=== PATIENT | female | born 1990 | race African-American/Black ===

== ENCOUNTER 2016-06-15 08:25 | Outpatient (CLI) | payer OTHER ==
[2016-06-15 09:47] LABS: PLATELET COUNT 278 K/uL (152-353)
[2016-06-15 09:55] LABS: POTASSIUM 3.4 mmol/L (3.6-5.2); SODIUM 137 mmol/L (136-145)
== END 2016-06-15 19:44 | disposition home or self-care (01) ==
LOC: LABW 08:25
PROVIDERS: Internal Medicine
DX: D64.89 Other specified anemias (principal); R79.0 Abnormal level of blood mineral; R53.83 Other fatigue
CPT/HCPCS: 36415; 80053; 81000; 81025; 82607; 82728; 82747; 83540; 83550; 84439; 84443; 85027

== ENCOUNTER 2016-10-02 15:47 | Outpatient (CLI) | payer OTHER | END 2016-10-02 16:50 | disposition home or self-care (01) | LOC: RAD 15:47 | DX: M79.671 Pain in right foot (principal) ==

== ENCOUNTER 2017-02-15 10:14 | Outpatient (CLI) | payer OTHER | END 2017-02-15 11:30 | disposition home or self-care (01) | LOC: CT 10:14 | DX: R51 Headache (principal) ==

== ENCOUNTER 2017-08-08 09:20 | Outpatient (CLI) | payer OTHER ==
[2017-08-08 10:31] LABS: POTASSIUM 3.4 mmol/L (3.6-5.2); SODIUM 135 mmol/L (136-145)
== END 2017-08-08 19:57 | disposition home or self-care (01) ==
LOC: LABW 09:20
PROVIDERS: Family Medicine
DX: D64.89 Other specified anemias (principal); R53.83 Other fatigue; Z83.3 Family history of diabetes mellitus; R07.89 Other chest pain; R79.89 Other specified abnormal findings of blood chemistry
CPT/HCPCS: 36415; 80053; 80061; 82306; 82550; 83036; 83655; 83735; 84439; 84443; 84484; 93005

== ENCOUNTER 2017-12-25 11:27 | Outpatient (CLI) | payer OTHER | END 2017-12-25 22:42 | disposition home or self-care (01) | LOC: RAD 11:27 | DX: S90.122A Contusion of left lesser toe(s) without damage to nail, initial encounter (principal) ==

== ENCOUNTER 2018-11-19 12:13 | Emergency (ER) | payer OTHER ==
[~2018-11-19] VITALS: Ht 157.5 cm; Wt 60.3 kg
[2018-11-19 12:17] VITALS: TEMP 98.4
[2018-11-19 14:30] VITALS: BP 104/68
== END 2018-11-19 14:45 | disposition home or self-care (01) ==
LOC: ED 12:13
DX: G43.909 Migraine, unspecified, not intractable, without status migrainosus (principal)
CPT/HCPCS: 96372; 99283; J3030

== ENCOUNTER 2022-08-21 16:01 | Outpatient (CLI) | payer OTHER | END 2022-08-21 19:28 | disposition home or self-care (01) | LOC: CT 16:01 | PROVIDERS: ATTEND Internal Medicine | DX: R51.9 Headache, unspecified (principal) ==